=== PATIENT | male | born 1970 | race American Indian/Alaskan Native ===

== ENCOUNTER 2017-02-09 16:18 | Emergency (ER) | payer OTHER ==
[2017-02-09 18:01] LABS: Bilirubin,Urine NEG (Negative); Blood,Urine NEG (Negative); Ketones,Urine NEG (Negative); Leukocyte Esterase,Urine NEG (Negative); Mucus,Urine FEW /HPF; Nitrite,Urine NEG (Negative); Protein,Urine <15 mg/dL mg/dL (Negative); Urobilinogen,Urine < 2.0 mg/dL (<2.0)
[2017-02-09 18:08] LABS: Basophils % (Auto) 0.7 % (0.0-1.8); Eosinophils % (Auto) 0.2 % (0.0-4.3); Hematocrit 42.1 % (35.5-45.6); Mean Corpuscular HGB Conc 33 % (32-34); Mean Corpuscular Hemoglobin 31 pg (28-32); Mean Corpuscular Volume 94 fl (84-94); Platelet Count 169 K/mm3 (140-440); Red Blood Count 4.48 M/mm3 (3.65-5.03); Red Cell Distribution Width 14.4 % (13.2-15.2); White Blood Count 7.3 K/mm3 (4.5-11.0)
[2017-02-09 18:23] LABS: Alanine Aminotransferase 24 units/L (7-56); Albumin 4.5 g/dL (3.9-5); Albumin/Globulin Ratio 1.5 %; Alkaline Phosphatase 77 units/L (35-129); Anion Gap 21 mmol/L; BUN/Creatinine Ratio 8.46; Bilirubin,Total 0.5 mg/dL (0.1-1.2); Blood Urea Nitrogen 11 mg/dL (9-20); Calcium 9.1 mg/dL (8.4-10.2); Carbon Dioxide 21 mmol/L (22-30); Chloride 100.8 mmol/L (98-107); Glucose 112 mg/dL (75-100); Lipase 27 units/L (13-60); Potassium 3.5 mmol/L (3.6-5.0); Sodium 139 mmol/L (137-145); Total Protein 7.5 g/dL (6.3-8.2)
[2017-02-09] MEDS ORDERED: BENTYL PO ONE (22:17)
[2017-02-09] MEDS ORDERED: ZOFRAN ODT PO ONE (22:17)
--- NOTE | 2017-02-09 22:17 | Emergency Department Report ---
ED N/V/D HPI - General Chief complaint: Abdominal Pain Stated complaint: ACID REFLUX/VOMITING Time Seen by Provider: 02/09/17 21:55 Source: patient Mode of arrival: Ambulatory Limitations: No Limitations - History of Present Illness Initial comments: 46-year-old male complains of abdominal cramping ,nausea and diarrhea after he ate he ate something at work yesterday. Patient stated he is currently having dry heaves and nausea but not able to throw up. Also complains of abnormal cramping. Denies any other complaint. MD complaint: nausea, diarrhea, abdominal pain -: Gradual (since yesterday) Description of Vomiting: food contents Description of Diarrhea: tarry Associated Abdominal Pain: Yes (cramping) Location: diffuse Radiation: none Severity: mild Pain Scale: 2 Quality: cramping, dull Consistency: constant Improves with: none Worsens with: eating Context: possible food poisoning Associated Symptoms: denies other symptoms - Related Data Previous Rx's Medication Instructions Recorded Last Taken Type traMADol [Ultram 50 MG tab] 50 mg PO Q6HR PRN #14 tablet 04/23/16 Unknown Rx Clotrimazole/Betamethasone Dip 1 applicatio TP BID #1 cream..g. 02/09/17 Unknown Rx [Lotrisone Cream] Docusate Sodium [Colace] 100 mg PO BID PRN #14 capsule 02/09/17 Unknown Rx Ondansetron [Zofran Odt] 4 mg PO TID #15 tab.rapdis 02/09/17 Unknown Rx Allergies Allergy/AdvReac Type Severity Reaction Status Date / Time No Known Allergies Allergy Verified 02/09/17 17:14 ED Review of Systems ROS: Stated complaint: ACID REFLUX/VOMITING Other details as noted in HPI Comment: All other systems reviewed and negative Constitutional: denies: chills, fever Eyes: denies: eye pain, eye discharge, vision change ENT: denies: ear pain, throat pain Respiratory: denies: cough, shortness of breath, wheezing Cardiovascular: denies: chest pain, palpitations Endocrine: no symptoms reported Gastrointestinal: as per HPI, diarrhea. denies: abdominal pain, nausea Genitourinary: denies: urgency, dysuria Musculoskeletal: denies: back pain, joint swelling, arthralgia Skin: denies: rash, lesions Neurological: denies: headache, weakness, paresthesias Psychiatric: denies: anxiety, depression Hematological/Lymphatic: denies: easy bleeding, easy bruising ED Past Medical Hx - Past Medical History Hx GERD: Yes - Surgical History Past Surgical History?: No - Social History Smoking Status: Never Smoker Substance Use Type: Alcohol - Medications Home Medications: Home Medications Medication Instructions Recorded Confirmed Last Taken Type traMADol [Ultram 50 MG tab] 50 mg PO Q6HR PRN #14 tablet 04/23/16 02/09/17 Unknown Rx Clotrimazole/Betamethasone Dip 1 applicatio TP BID #1 cream..g. 02/09/17 Unknown Rx [Lotrisone Cream] Docusate Sodium [Colace] 100 mg PO BID PRN #14 capsule 02/09/17 Unknown Rx Ondansetron [Zofran Odt] 4 mg PO TID #15 tab.rapdis 02/09/17 Unknown Rx ED Physical Exam - General Limitations: No Limitations General appearance: alert, in no apparent distress - Head Head exam: Present: atraumatic, normocephalic - Eye Eye exam: Present: normal appearance - ENT ENT exam: Present: mucous membranes moist - Neck Neck exam: Present: normal inspection - Respiratory Respiratory exam: Present: normal lung sounds bilaterally. Absent: respiratory distress - Cardiovascular Cardiovascular Exam: Present: regular rate, normal rhythm. Absent: systolic murmur, diastolic murmur, rubs, gallop - GI/Abdominal GI/Abdominal exam: Present: soft, distended, tenderness (mild difuse), normal bowel sounds, hypoactive bowel sounds. Absent: guarding, rebound, rigid, organomegaly, mass, bruit, pulsatile mass, hernia - Expanded GI/Abdominal Exam Expanded GI/Abdominal exam: Absent: psoas sign, obturator sign, Fernandez's sign, Rovsing's sign, tenderness at Mcburney's Point - Rectal Rectal exam: Present: deferred - Extremities Exam Extremities exam: Present: normal inspection - Back Exam Back exam: Present: normal inspection - Neurological Exam Neurological exam: Present: alert, oriented X3 - Psychiatric Psychiatric exam: Present: normal affect, normal mood - Skin Skin exam: Present: warm, dry, intact, normal color. Absent: rash ED Course Vital Signs 02/09/17 17:18 Temperature 98.7 F Pulse Rate 70 Respiratory 17 Rate Blood Pressure 113/71 O2 Sat by Pulse 100 Oximetry - Reevaluation(s) Reevaluation #1: Feeling better after medication was given the emergency room. 02/09/17 23:41 ED Medical Decision Making - Lab Data Result diagrams: 02/09/17 17:50 02/09/17 17:50 - Radiology Data Radiology results: report reviewed (moderate amount of stool) Critical care attestation.: If time is entered above; I have spent that time in minutes in the direct care of this critically ill patient, excluding procedure time. ED Disposition Clinical Impression: Gastroenteritis due to food toxin, Nausea and vomiting in adult Constipation Qualifiers: Constipation type: slow transit constipation Qualified Code(s): K59.01 - Slow transit constipation Disposition: DISCHARGED TO HOME OR SELFCARE Is pt being admited?: No Does the pt Need Aspirin: No Condition: Good Instructions: Constipation (ED), Acute Nausea and Vomiting (ED) Prescriptions: Clotrimazole/Betamethasone Dip [Lotrisone Cream] 1 applicatio TP BID #1 cream..g. Docusate Sodium [Colace] 100 mg PO BID PRN #14 capsule PRN Reason: Constipation Ondansetron [Zofran Odt] 4 mg PO TID #15 tab.rapdis Referrals: PRIMARY CARE, [Primary Care Provider] - 3-5 Days Forms: Work/School Release Form(ED)
--- NOTE | 2017-02-09 23:30 | XRay Report ---
FINAL REPORT PROCEDURE: XR ABDOMEN 1V AP TECHNIQUE: Two AP supine views of the abdomen obtained. Two films were obtained to cover all anatomy. HISTORY: Abdominal pain and cramping. COMPARISON: No prior studies are available for comparison. FINDINGS: There is a nonspecific bowel gas pattern with no plain film evidence of ileus or obstruction. There is a moderate amount of stool throughout the colon. There is mild to moderate curvature of the lower thoracic and upper lumbar spine to the left. Minimal bony degenerative change seen elsewhere. Calcification in the right pelvis is probably a phlebolith although I cannot definitely exclude a distal ureteral stone. IMPRESSION: 1. Nonspecific bowel gas pattern. 2. Moderate amount of stool throughout the colon. 3. There is mild to moderate curvature of the lower thoracic and upper lumbar spine to left.
[2017-02-10 00:35] VITALS: BP 130/80
[2017-02-10] MEDS ORDERED: DIFLUCAN PO ONE (23:57)
== END 2017-02-10 00:33 | disposition home or self-care (01) ==
LOC: ED 16:18
DX: A05.9 Bacterial foodborne intoxication, unspecified (principal); K59.01 Slow transit constipation; K21.9 Gastro-esophageal reflux disease without esophagitis
CPT/HCPCS: 36415; 74000; 80053; 81001; 83690; 85025; 99284; Q0162

== ENCOUNTER 2020-08-26 17:33 | Emergency (ER) | payer OTHER ==
[2020-08-26] MEDS ORDERED: ASPIRIN 325 MG TAB PO ONE (17:48)
[2020-08-26 18:02] LABS: Basophils % (Auto) 0.5 % (0.0-1.8); Eosinophils % (Auto) 0.5 % (0.0-4.3); Hematocrit 40.9 % (35.5-45.6); Lymphocytes # (Auto) 0.7 K/mm3 (1.2-5.4); Mean Corpuscular HGB Conc 34 % (32-34); Mean Corpuscular Volume 94 fl (84-94); Monocytes # (Auto) 0.4 K/mm3 (0.0-0.8); Monocytes % (Auto) 4.8 % (0.0-7.3); Platelet Count 205 K/mm3 (140-440); Red Blood Count 4.36 M/mm3 (3.65-5.03); Red Cell Distribution Width 13.4 % (13.2-15.2)
[2020-08-26 18:24] LABS: BUN/Creatinine Ratio 9; Blood Urea Nitrogen 11 mg/dL (9-20); Calcium 9.4 mg/dL (8.4-10.2); Hemolysis Index 9
[2020-08-27] MEDS ORDERED: LIDOCAINE VISCOUS 2% 15 ML ORAL LIQD PO ONE (01:25)
[2020-08-27] MEDS ORDERED: KETOROLAC 30 MG/1 ML INJ IM ONE (01:25)
[2020-08-27] MEDS ORDERED: ALUM-MAG HYDROXIDE-SIMETHICONE 200-200-20MG/5ML ORAL LIQD 30 ML PO ONE (01:25)
--- NOTE | 2020-08-27 03:29 | Emergency Department Report ---
ED General Adult HPI - General Chief complaint: Chest Pain Stated complaint: CP/ABD PAIN Time Seen by Provider: 08/26/20 22:11 Source: patient Mode of arrival: Ambulatory Limitations: No Limitations - History of Present Illness Initial comments: Patient 49-year-old male who presents for chest pain epigastric pain x3 days. Patient has history of GERD. Patient currently taking PPI for same. States out of medications. Pain today is 4/10 burning aching exacerbated by p.o. intake. Pain is relieved by nothing tried. Patient does have follow-up with GI next week. Severity scale (0 -10): 4 - Related Data Previous Rx's Medication Instructions Recorded Last Taken Type traMADoL [Ultram 50 MG tab] 50 mg PO Q6HR PRN #14 tablet 04/23/16 Unknown Rx Clotrimazole/Betamethasone Dip 1 applicatio TP BID #1 cream..g. 02/09/17 Unknown Rx [Lotrisone Cream] Docusate Sodium [Colace] 100 mg PO BID PRN #14 capsule 02/09/17 Unknown Rx Ondansetron [Zofran Odt] 4 mg PO TID #15 tab.rapdis 02/09/17 Unknown Rx Acetaminophen/Codeine [Tylenol 1 tab PO Q6H PRN #12 tab 08/27/20 Unknown Rx /Codeine # 3 tab] Omeprazole 40 mg PO DAILY #30 capsule. 08/27/20 Unknown Rx Sucralfate [Carafate] 1 gm PO ACHS 7 Days #28 udc 08/27/20 Unknown Rx Allergies Allergy/AdvReac Type Severity Reaction Status Date / Time No Known Allergies Allergy Verified 02/09/17 17:14 ED Review of Systems ROS: Stated complaint: CP/ABD PAIN Other details as noted in HPI Constitutional: denies: chills, fever Eyes: denies: eye pain, eye discharge, vision change ENT: denies: ear pain, throat pain Respiratory: denies: cough, shortness of breath, wheezing Cardiovascular: denies: chest pain, palpitations Endocrine: no symptoms reported Gastrointestinal: abdominal pain (epigastric ), nausea Genitourinary: denies: urgency, dysuria Musculoskeletal: denies: back pain, joint swelling, arthralgia Skin: denies: rash, lesions Neurological: denies: headache, weakness, paresthesias Psychiatric: denies: anxiety, depression Hematological/Lymphatic: denies: easy bleeding, easy bruising ED Past Medical Hx - Past Medical History Previous Medical History?: No Hx GERD: Yes - Surgical History Past Surgical History?: No - Social History Smoking Status: Never Smoker Substance Use Type: None - Medications Home Medications: Home Medications Medication Instructions Recorded Confirmed Last Taken Type traMADoL [Ultram 50 MG tab] 50 mg PO Q6HR PRN #14 tablet 04/23/16 02/09/17 Unknown Rx Clotrimazole/Betamethasone Dip 1 applicatio TP BID #1 cream..g. 02/09/17 Unknown Rx [Lotrisone Cream] Docusate Sodium [Colace] 100 mg PO BID PRN #14 capsule 02/09/17 Unknown Rx Ondansetron [Zofran Odt] 4 mg PO TID #15 tab.rapdis 02/09/17 Unknown Rx Acetaminophen/Codeine [Tylenol 1 tab PO Q6H PRN #12 tab 08/27/20 Unknown Rx /Codeine # 3 tab] Omeprazole 40 mg PO DAILY #30 capsule.dr 08/27/20 Unknown Rx Sucralfate [Carafate] 1 gm PO ACHS 7 Days #28 udc 08/27/20 Unknown Rx ED Physical Exam - General Limitations: No Limitations General appearance: alert, in no apparent distress - Head Head exam: Present: atraumatic, normocephalic - Eye Eye exam: Present: normal appearance - ENT ENT exam: Present: mucous membranes moist - Neck Neck exam: Present: normal inspection, full ROM - Respiratory Respiratory exam: Present: normal lung sounds bilaterally. Absent: respiratory distress, wheezes, stridor, chest wall tenderness - Cardiovascular Cardiovascular Exam: Present: regular rate, normal rhythm, normal heart sounds. Absent: systolic murmur, diastolic murmur, rubs, gallop - GI/Abdominal GI/Abdominal exam: Present: soft, normal bowel sounds. Absent: distended, tenderness, guarding, rebound, rigid, bruit, hernia - Rectal Rectal exam: Present: deferred - Extremities Exam Extremities exam: Present: normal inspection. Absent: pedal edema - Back Exam Back exam: Present: normal inspection, full ROM. Absent: tenderness, CVA tenderness (R), CVA tenderness (L) - Neurological Exam Neurological exam: Present: alert, oriented X3, CN II-XII intact, normal gait - Psychiatric Psychiatric exam: Present: normal affect, normal mood - Skin Skin exam: Present: warm, dry, intact, normal color. Absent: rash ED Medical Decision Making - Lab Data Result diagrams: 08/26/20 17:59 08/26/20 17:59 Labs 08/26/20 08/26/20 17:59 17:59 WBC 7.9 RBC 4.36 Hgb 14.0 Hct 40.9 MCV 94 MCH 32 MCHC 34 RDW 13.4 Plt Count 205 Lymph % (Auto) 9.0 L [place] % (Auto) 4.8 Eos % (Auto) 0.5 Baso % (Auto) 0.5 Lymph # (Auto) 0.7 L [place] # (Auto) 0.4 Eos # (Auto) 0.0 Baso # (Auto) 0.0 Seg Neutrophils % 85.2 H Seg Neutrophils # 6.7 Sodium 140 Potassium 3.8 Chloride 105.9 Carbon Dioxide 21 L Anion Gap 17 BUN 11 Creatinine 1.2 Estimated GFR > 60 BUN/Creatinine Ratio 9 Glucose 159 H Calcium 9.4 Troponin T < 0.010 - EKG Data Rate: bradycardia - EKG Data When compared to previous EKG there are: no significant change Interpretation: unchanged when compared t (Sinus Arhythmia kalina cardia no LVI ) - Radiology Data ptr refused cxr - Medical Decision Making CXR : refused by patient, EKG: Sinus [place], no STEMI , Heart score 1,labs normal, pt advises pain is improved plan. PT will dc'd to home in stable conditionat this time, pt dc'd rx, will follow up with pcp in 2-3 days. Follow up with GI in 2-3 days Critical care attestation.: If time is entered above; I have spent that time in minutes in the direct care of this critically ill patient, excluding procedure time. ED Disposition Clinical Impression: GERD (gastroesophageal reflux disease) Qualifiers: Esophagitis presence: without esophagitis Qualified Code(s): K21.9 - Gastro- esophageal reflux disease without esophagitis Disposition: DC-01 TO HOME OR SELFCARE Is pt being admited?: No Does the pt Need Aspirin: No Condition: Stable Instructions: Gastroesophageal Reflux Disease (ED), Diet for Ulcers and Gastritis (ED) Prescriptions: Sucralfate [Carafate] 1 gm PO ACHS 7 Days #28 udc Omeprazole 40 mg PO DAILY #30 capsule. Acetaminophen/Codeine [Tylenol /Codeine # 3 tab] 1 tab PO Q6H PRN #12 tab PRN Reason: pain Referrals: [facility] [Provider Group] - 3-5 Days RAMIRO BERNAL MD [Staff Physician] - 3-5 Days Forms: Work/School Release Form(ED) Time of Disposition: 03:50
== END 2020-08-27 02:10 | disposition home or self-care (01) ==
LOC: ED 17:33
DX: K21.9 Gastro-esophageal reflux disease without esophagitis (principal); Z79.899 Other long term (current) drug therapy
CPT/HCPCS: 36415; 80048; 84484; 85025; 93005; 96372; 99283; J1885